=== PATIENT | male | born 1945 | race Caucasian/White ===

== ENCOUNTER 2017-12-09 07:42 | Emergency (ER) | payer OTHER ==
[~2017-12-09] VITALS: Ht 182.9 cm; Wt 97.5 kg
[~2017-12-09 07:42] MED LIST: INSR10I SC; INSULANI SC; METF500 PO; NAPR500 PO; OXYACE5T PO; PROM25 PO; TAMS.4ER PO
[2017-12-09] MEDS ORDERED: Ultram50 MG PO (09:20)
[2018-06-05] MEDS ORDERED: TRAM50 PO (09:37)
[2018-06-05] MEDS ORDERED: NAPR500 PO (09:38)
[2018-06-05] MEDS ORDERED: FLUO10 PO (09:38)
[2018-06-05] MEDS ORDERED: LISI5 PO (09:38)
[2018-09-06] MEDS ORDERED: NAPR500 PO (15:57)
[2018-09-06] MEDS ORDERED: Ferrous Sulfat325 M2 PO (15:58)
== END 2017-12-09 09:27 | disposition home or self-care (01) ==
LOC: ER 07:42
DX: M19.011 Primary osteoarthritis, right shoulder (principal); E11.9 Type 2 diabetes mellitus without complications; Z79.899 Other long term (current) drug therapy; Z79.4 Long term (current) use of insulin
CPT/HCPCS: 73030; 99283

== ENCOUNTER 2020-02-13 06:11 | Emergency (ER) | payer OTHER ==
[~2020-02-13] VITALS: Ht 182.9 cm; Wt 88.5 kg
[~2020-02-13 06:11] MED LIST changes: +FLUO10 PO; +Ferrous Sulfat325 M2 PO; -INSULANI SC; +INSULANPEN SC; +LISI5 PO; +TRAM50 PO; +Ultram50 MG PO
[2020-02-13] MEDS ORDERED: AMOCLA875 PO (07:45)
== END 2020-02-13 07:52 | disposition home or self-care (01) ==
LOC: ER 06:11
DX: S61.451A Open bite of right hand, initial encounter (principal); L08.9 Local infection of the skin and subcutaneous tissue, unspecified; E11.9 Type 2 diabetes mellitus without complications; W55.01XA Bitten by cat, initial encounter; Z87.891 Personal history of nicotine dependence; Z79.4 Long term (current) use of insulin; Z79.899 Other long term (current) drug therapy
CPT/HCPCS: 99282

== ENCOUNTER 2020-05-26 10:43 | Emergency (ER) | payer OTHER ==
[~2020-05-26] VITALS: Ht 182.9 cm; Wt 79.4 kg
[~2020-05-26 10:43] MED LIST changes: +AMOCLA875 PO
[2020-05-26] MEDS ORDERED: Veetids 500500 MG PO (11:19)
[2020-05-26] MEDS ORDERED: Norco 5-325 Ta1 EACH PO (11:19)
== END 2020-05-26 11:35 | disposition home or self-care (01) ==
LOC: ER 10:43
DX: K08.89 Other specified disorders of teeth and supporting structures (principal); E11.9 Type 2 diabetes mellitus without complications; Z79.899 Other long term (current) drug therapy; Z79.4 Long term (current) use of insulin
CPT/HCPCS: 99282

== ENCOUNTER 2021-05-10 18:52 | Emergency (ER) | payer OTHER ==
[~2021-05-10] VITALS: Ht 182.9 cm; Wt 81.7 kg
[~2021-05-10 18:52] MED LIST changes: +Norco 5-325 Ta1 EACH PO; +Veetids 500500 MG PO
[2021-05-10 19:29] LABS: BASOPHILS ABSOLUTE AUTO 0.02 K/mm3 (0.00-0.23); BASOPHILS PERCENT AUTO 0 % (0-2); EOSINOPHILS ABSOLUTE AUTO 0.08 K/mm3 (0.00-0.68); EOSINOPHILS PERCENT AUTO 1 % (0-6); Hematocrit 42.7 % (37.0-53.0); Hemoglobin 14.8 g/dL (13.5-17.5); IMMATURE GRAN ABSOLUTE AUTO 0.01 K/mm3 (0.00-0.10); IMMATURE GRAN PERCENT AUTO 0 % (0-1); LYMPHOCYTES ABSOLUTE AUTO 1.81 K/mm3 (0.84-5.20); LYMPHOCYTES PERCENT AUTO 29 % (21-46); MONOCYTES ABSOLUTE AUTO 0.39 K/mm3 (0.16-1.47); MONOCYTES PERCENT AUTO 6 % (4-13); Mean Corpuscular HGB 31.4 pg (26.0-34.0); Mean Corpuscular HGB Conc 34.7 g/dL (31.5-36.5); Mean Corpuscular Volume 91 fL (80-100); Mean Platelet Volume 10.2 fL (9.1-12.4); NEUTROPHILS ABSOLUTE AUTO 3.93 K/mm3 (1.96-9.15); NEUTROPHILS PERCENT AUTO 63 % (41-73); Platelet Count 217 K/mm3 (150-400); RDW Coefficient Variation 11.4 % (11.7-14.2); RDW Standard Deviation 38.1 fL (35.1-46.3); Red Blood Cell Count 4.72 M/mm3 (4.30-5.90); White Blood Cell Count 6.24 K/mm3 (4.00-11.30)
[2021-05-10 19:57] LABS: Alanine Aminotransfer (ALT/SGP 17 U/L (12-78); Albumin, Blood 3.4 g/dL (3.4-5.0); Albumin/Globulin Ratio 0.9 (0.8-1.8); Alk Phos 70 U/L (50-136); Anion Gap 8 mmol/L (6-16); Aspartate Aminotrans (AST/SGOT 23 U/L (12-37); Bilirubin, Total 0.9 mg/dL (0.1-1.0); Blood Urea Nitrogen 24 mg/dL (8-24); Bun/Creatinine Ratio 12.6 (12.0-20.0); CO2, Blood 20 mmol/L (21-32); Calcium, Blood 9.1 mg/dL (8.5-10.1); Chloride, Blood 112 mmol/L (98-108); Creatinine, Blood 1.91 mg/dL (0.60-1.20); Globulin, Blood 3.7 g/dL (2.2-4.0); Glomerular Filtration Rate 34 (60-); Glucose, Blood 272 mg/dL (70-99); Potassium, Blood 4.4 mmol/L (3.5-5.5); Sodium, Blood 140 mmol/L (136-145); Total Protein, Blood 7.1 g/dL (6.4-8.2); Troponin I <0.015 ng/mL (0.000-0.040)
[2021-05-10 21:10] LABS: Calcium, Ionized (POC) 0.97 mmol/L (1.10-1.46); Chloride (POC) 111 mmol/L (98-108); Creatinine (POC) 1.6 mg/dL (0.8-1.3); Glucose (ISTAT POC) 195 mg/dL (70-99); Hemoglobin (POC) 13.3 g/dL (13.5-17.5); Sodium (POC) 139 mmol/L (135-148); Total CO2 (POC) 20 mmol/L (21-32)
[2021-05-10 22:13] LABS: Source, Urine Clean Catch
[2021-05-10 22:15] LABS: Bilirubin, Urine Neg (Neg); Blood, Urine 1+ (Neg); Glucose Qualitative, Urine 4+ (Neg); Ketones, Urine Neg (Neg); Leukocyte Esterase, Urine Neg (Neg); Nitrite, Urine Neg (Neg); Protein, Urine 1+ (Neg); Specific Gravity, Urine 1.015 (1.003-1.022); Urobilinogen, Urine NORM (Normal)
[2021-05-10 22:21] LABS: Appearance, Urine Clear (Clear); Color, Urine Yellow (P-Yellow)
[2021-05-10 22:22] LABS: Bacteria Few /hpf; Hyaline Casts 0-2 /lpf (0-2); Red Blood Cells, Urine 0-2 /hpf (0-2); Squamous Epithelial Cells Not Seen /hpf (Few); Yeast/Fungi Urine Few /hpf
== END 2021-05-10 22:31 | disposition home or self-care (01) ==
LOC: ER 18:52
PROVIDERS: Student in an Organized Health Care Education/Training Program
DX: R55 Syncope and collapse (principal); E86.0 Dehydration; N17.9 Acute kidney failure, unspecified; E11.65 Type 2 diabetes mellitus with hyperglycemia; Z79.4 Long term (current) use of insulin; Z87.891 Personal history of nicotine dependence
CPT/HCPCS: 71045; 80047; 80053; 81001; 83880; 84484; 85014; 85025; 93005; 93010; 99284-25; J7030

== ENCOUNTER 2022-05-18 15:28 | Emergency (ER) | payer OTHER ==
[~2022-05-18] VITALS: Ht 182.9 cm; Wt 74.8 kg
== END 2022-05-18 17:13 | disposition home or self-care (01) ==
LOC: ER 15:28
DX: T67.5XXA Heat exhaustion, unspecified, initial encounter (principal); E11.9 Type 2 diabetes mellitus without complications; Z79.4 Long term (current) use of insulin; Z87.891 Personal history of nicotine dependence; X58.XXXA Exposure to other specified factors, initial encounter; Z89.212 Acquired absence of left upper limb below elbow
CPT/HCPCS: 93005; 93010; 99285-25; C1751

== ENCOUNTER 2023-08-14 16:44 | Emergency (ER) | payer OTHER ==
[~2023-08-14] VITALS: Ht 182.9 cm; Wt 68.0 kg
[2023-08-14 18:10] LABS: BASOPHILS ABSOLUTE AUTO 0.03 K/mm3 (0.00-0.23); BASOPHILS PERCENT AUTO 1 % (0-2); EOSINOPHILS ABSOLUTE AUTO 0.04 K/mm3 (0.00-0.68); EOSINOPHILS PERCENT AUTO 1 % (0-6); Hematocrit 44.1 % (37.0-53.0); Hemoglobin 14.5 g/dL (13.5-17.5); IMMATURE GRAN ABSOLUTE AUTO 0.03 K/mm3 (0.00-0.10); IMMATURE GRAN PERCENT AUTO 1 % (0-1); LYMPHOCYTES ABSOLUTE AUTO 0.89 K/mm3 (0.84-5.20); LYMPHOCYTES PERCENT AUTO 14 % (21-46); MONOCYTES ABSOLUTE AUTO 0.31 K/mm3 (0.16-1.47); MONOCYTES PERCENT AUTO 5 % (4-13); Mean Corpuscular HGB 30.3 pg (26.0-34.0); Mean Corpuscular HGB Conc 32.9 g/dL (31.5-36.5); Mean Corpuscular Volume 92 fL (80-100); Mean Platelet Volume 9.4 fL (9.1-12.4); NEUTROPHILS ABSOLUTE AUTO 5.19 K/mm3 (1.96-9.15); NEUTROPHILS PERCENT AUTO 80 % (41-73); Platelet Count 252 K/mm3 (150-400); RDW Coefficient Variation 13.4 % (11.7-14.2); RDW Standard Deviation 45.5 fL (35.1-46.3); Red Blood Cell Count 4.78 M/mm3 (4.30-5.90); White Blood Cell Count 6.49 K/mm3 (4.00-11.30)
[2023-08-14 18:44] LABS: Albumin, Blood 3.6 g/dL (3.4-5.0); Albumin/Globulin Ratio 0.8 (0.8-1.8); Beta-hydroxybutyrate 7.8 mg/dL (0.2-2.8); Bun/Creatinine Ratio 15.8 (12.0-20.0); Calcium, Blood 9.7 mg/dL (8.5-10.1); Creatinine, Blood 1.46 mg/dL (0.60-1.20); Globulin, Blood 4.4 g/dL (2.2-4.0); Potassium, Blood 4.6 mmol/L (3.5-5.5)
[2023-08-14 21:00] VITALS: BP 151/88
[2023-08-14] MEDS ORDERED: ONDA4ODT MM (21:07)
== END 2023-08-14 21:23 | disposition home or self-care (01) ==
LOC: ER 16:44
PROVIDERS: Student in an Organized Health Care Education/Training Program
DX: K29.00 Acute gastritis without bleeding (principal); E11.9 Type 2 diabetes mellitus without complications; Z79.84 Long term (current) use of oral hypoglycemic drugs; Z79.4 Long term (current) use of insulin; Z87.891 Personal history of nicotine dependence
CPT/HCPCS: 71046; 80053; 82010; 83690; 83930; 85025; 93005; 93010; 96360; 99284-25; J2405; J3010; J7030

== ENCOUNTER 2023-08-18 13:02 | Inpatient (IN) | payer OTHER ==
[~2023-08-18] VITALS: Ht 182.9 cm; Wt 71.4 kg
[~2023-08-18 13:02] MED LIST changes: +ONDA4ODT MM
[2023-08-18 14:36] LABS: BASOPHILS ABSOLUTE AUTO 0.03 K/mm3 (0.00-0.23); BASOPHILS PERCENT AUTO 1 % (0-2); EOSINOPHILS ABSOLUTE AUTO 0.06 K/mm3 (0.00-0.68); EOSINOPHILS PERCENT AUTO 1 % (0-6); Hematocrit 43.1 % (37.0-53.0); Hemoglobin 14.6 g/dL (13.5-17.5); IMMATURE GRAN ABSOLUTE AUTO 0.01 K/mm3 (0.00-0.10); IMMATURE GRAN PERCENT AUTO 0 % (0-1); LYMPHOCYTES ABSOLUTE AUTO 1.46 K/mm3 (0.84-5.20); LYMPHOCYTES PERCENT AUTO 26 % (21-46); MONOCYTES ABSOLUTE AUTO 0.47 K/mm3 (0.16-1.47); MONOCYTES PERCENT AUTO 8 % (4-13); Mean Corpuscular HGB 30.7 pg (26.0-34.0); Mean Corpuscular HGB Conc 33.9 g/dL (31.5-36.5); Mean Corpuscular Volume 91 fL (80-100); Mean Platelet Volume 9.8 fL (9.1-12.4); NEUTROPHILS ABSOLUTE AUTO 3.59 K/mm3 (1.96-9.15); NEUTROPHILS PERCENT AUTO 64 % (41-73); Platelet Count 263 K/mm3 (150-400); RDW Coefficient Variation 13.2 % (11.7-14.2); RDW Standard Deviation 43.8 fL (35.1-46.3); Red Blood Cell Count 4.76 M/mm3 (4.30-5.90); White Blood Cell Count 5.62 K/mm3 (4.00-11.30)
[2023-08-18 14:49] LABS: Albumin, Blood 3.6 g/dL (3.4-5.0); Albumin/Globulin Ratio 0.8 (0.8-1.8); Bilirubin, Total 0.7 mg/dL (0.1-1.0); Bun/Creatinine Ratio 16.5 (12.0-20.0); Calcium, Blood 9.6 mg/dL (8.5-10.1); Creatinine, Blood 2.3 mg/dL (0.60-1.20); Globulin, Blood 4.4 g/dL (2.2-4.0)
[2023-08-18 15:00] LABS: Source, Urine Clean Catch
[2023-08-18 15:02] LABS: Appearance, Urine Clear (Clear); Bilirubin, Urine Neg (Neg); Blood, Urine 1+ (Neg); Color, Urine Yellow (P-Yellow); Glucose Qualitative, Urine 1+ (Neg); Ketones, Urine Neg (Neg); Leukocyte Esterase, Urine 1+ (Neg); Nitrite, Urine Neg (Neg); Protein, Urine 2+ (Neg); Specific Gravity, Urine 1.025 (1.003-1.022); Urobilinogen, Urine NORM (Normal)
[2023-08-18 15:10] LABS: Bacteria Many /hpf; Squamous Epithelial Cells Rare /hpf (Few)
[2023-08-18 15:11] LABS: Base Excess Venous -0.6 mmol/L; Bicarbonate Venous 23.1 mmol/L (24.0-30.0); PCO2 Venous 42.8 mmHg (38-42); pH Blood Venous 7.37 (7.34-7.37)
[2023-08-18 18:02] VITALS: BP 153/90
[2023-08-18] MEDS ORDERED: FLUO10 PO (18:07)
[2023-08-18 19:45] VITALS: BP 131/78
[2023-08-19 03:02] VITALS: BP 125/75
[2023-08-19 03:50] LABS: Hematocrit 38.9 % (37.0-53.0); Hemoglobin 13.3 g/dL (13.5-17.5); Mean Corpuscular HGB Conc 34.2 g/dL (31.5-36.5); Mean Corpuscular Volume 91 fL (80-100); Mean Platelet Volume 9.8 fL (9.1-12.4); Platelet Count 183 K/mm3 (150-400); RDW Coefficient Variation 13.3 % (11.7-14.2); RDW Standard Deviation 44.1 fL (35.1-46.3); Red Blood Cell Count 4.29 M/mm3 (4.30-5.90); White Blood Cell Count 6.34 K/mm3 (4.00-11.30)
[2023-08-19 04:18] LABS: Albumin, Blood 3.2 g/dL (3.4-5.0); Anion Gap 5 mmol/L (6-16); Blood Urea Nitrogen 33 mg/dL (8-24); Bun/Creatinine Ratio 16.5 (12.0-20.0); CO2, Blood 26 mmol/L (21-32); Calcium, Blood 8.4 mg/dL (8.5-10.1); Chloride, Blood 108 mmol/L (98-108); Ferritin, Serum 227 ng/mL (26-388); Glomerular Filtration Rate 34 (60-); Glucose, Blood 115 mg/dL (70-99); Iron Serum 58 ug/dL (65-175); Magnesium, Blood 1.6 mg/dL (1.6-2.4); Percent Saturation 26.6 % (20.0-50.0); Phosphorus, Blood 3.3 mg/dL (2.5-4.9); Potassium, Blood 3.7 mmol/L (3.5-5.5); Sodium, Blood 139 mmol/L (136-145); Total Iron Binding Capacity 218 ug/dL (250-450)
--- NOTE | 2023-08-19 04:58 | NUR ---
SHIFT SUMMARY NO ACUTE CHANGES OVERNIGHT. PT ANSWERING QUESTIONS APPROPRIATELY BUT APPEARS FORGETFUL AT TIMES. CALLING APPROPRIATELY. VITALS STABLE. REPOSITIONING SELF AND USING URINAL INDEPENDENTLY. NS INFUSING PER EMAR. BED IN LOWEST POSITION AND CALL LIGHT WITHIN REACH. THIS RN WILL REPORT TO ONCOMING DAYSHIFT RN.
[2023-08-19 07:23] VITALS: BP 114/52
[2023-08-19 17:06] VITALS: BP 133/77
--- NOTE | 2023-08-19 17:28 | NUR ---
SHIFT SUMMARY: PT REMAINS ALERT AND ORIENTED X3, ABLE TO FOLLOW COMMANDS AND MAKE NEEDS KNOWN. FORGETFUL AT TIMES. POOR HISTORIAN. PT ABLE TO TELL THIS RN NAME, , AND LOCATION. AFEBRILE. BP AND HR STABLE. SPO2 >98% ON ROOM AIR. RESPIRATIONS EVEN AND UNLABORED. PULSES STRONG AND EQUAL THROUGHOUT. PT REMAINS HEAVY 2 PERSON MAX ASSIST WITH GAITBELT AND FWW. TELLS THIS RN ABOUT [place]. WHEN ASKED ABOUT LIVING SITUATION PT STATES HE LIVES ALONE WITH 20 CATS. PT DISCLOSES HE IS UNABLE TO RECEIVE FOOD SOURCES DUE TO INCOME AND LACK OF TRANSPORTATION, STATES 50+ LB WEIGHT LOST WITHIN 6 MONTHS. AT TIMES BROTHER AND SISTER IN LAW ARE ABLE TO ASSIST IN GROCERY SHOPPING. PT UNSAFE TO D/C HOME AT THIS TIME. PT/OT ORDERED. CARE MANAGEMENT INVOLVED. BED IN LOW, CALL LIGHT IN REACH, WILL REPORT TO ONCOMING RN.
[2023-08-19 19:43] VITALS: BP 141/76
[2023-08-20 02:26] VITALS: BP 162/88
--- NOTE | 2023-08-20 04:54 | NUR ---
SHIFT SUMMARY: PT IS ALERT AND ORIENTED. PT IS CALM AND COOPERATIVE WITH CARE. PT CALLS APPROPRIATELY. PT IS A 2 PERSON ASSIST, USING THE URINAL INDEPENDENTLY. PT DENIES PAIN, NAUSEA, VOMITING, AND SOB. BED IN LOW POSITION, CALL LIGHT WITHIN REACH. WILL CONTINUE TO MONITOR AND REPORT TO DAY NURSE.
[2023-08-20 05:29] LABS: Hematocrit 40.5 % (37.0-53.0); Hemoglobin 13.5 g/dL (13.5-17.5); Mean Corpuscular HGB 30.3 pg (26.0-34.0); Mean Corpuscular HGB Conc 33.3 g/dL (31.5-36.5); Mean Corpuscular Volume 91 fL (80-100); Platelet Count 183 K/mm3 (150-400); RDW Coefficient Variation 13.2 % (11.7-14.2); RDW Standard Deviation 43.9 fL (35.1-46.3); Red Blood Cell Count 4.46 M/mm3 (4.30-5.90); White Blood Cell Count 6.93 K/mm3 (4.00-11.30)
--- NOTE | 2023-08-20 05:29 | NUR ---
LATE NOTE. PT TRANSFERRED FROM [facility] TO ROOM 338 AT ABOUT ~0130. PT AOX2, PLEASANT, COOPERATIVE WITH CARE AT TIME OF TRANSFER. IMPULSIVE BUT MOSTLY REIDRECTABLE. VERY UNSTEADY ON FEET. REPORTS FEELING DIZZY WHENEVER HE SITS UP TOO FAST OR STANDS UP. REPORT GIVEN TO RN AL YU WHO WAS AT BEDSIDE FOR PT ARRIVAL ON MEDICAL FLOOR. RECIEVING RN WAS ABLE TO ASSUME CARE WITHOUT DIFFICULTY AND REPORTED NO FURTHER QUESTIONS.
[2023-08-20 05:50] LABS: Albumin, Blood 3.2 g/dL (3.4-5.0); Anion Gap 6 mmol/L (6-16); Blood Urea Nitrogen 22 mg/dL (8-24); Bun/Creatinine Ratio 14.9 (12.0-20.0); CO2, Blood 26 mmol/L (21-32); Calcium, Blood 8.7 mg/dL (8.5-10.1); Chloride, Blood 106 mmol/L (98-108); Creatinine, Blood 1.48 mg/dL (0.60-1.20); Glomerular Filtration Rate 48 (60-); Glucose, Blood 129 mg/dL (70-99); Magnesium, Blood 1.6 mg/dL (1.6-2.4); Phosphorus, Blood 3.1 mg/dL (2.5-4.9); Potassium, Blood 3.7 mmol/L (3.5-5.5); Sodium, Blood 138 mmol/L (136-145)
[2023-08-20 07:45] VITALS: BP 131/96
[2023-08-20 07:47] VITALS: BP 115/73
[2023-08-20 07:53] VITALS: BP 115/80
[2023-08-20 17:28] VITALS: BP 126/96
[2023-08-20 19:16] VITALS: BP 135/89
--- NOTE | 2023-08-20 19:47 | NUR ---
SHIFT SUMMARY PATIENT CONFUSED THROUGHOUT THE DAY. PATIENT VERY WEAK AND IMPULSIVE. PATIENT UNDERSTANDS THAT IT IS NOT SAFE FOR HIM TO RETURN HOME ALONE. PATIENT TALKING ABOUT NEEDING TO GO HOME AND MAKE ARRANGEMENTS. PATIENT ANXIOUS ABOUT DISCHARGE PLAN AND COST.
[2023-08-21] VITALS (7 sets, daily range): BP systolic 100–145; BP diastolic 63–84
--- NOTE | 2023-08-21 05:03 | NUR ---
SHIFT SUMMARY PT LAYING IN BED DURING BEDSIDE REPORT, PT REPORTS STOMACH TENDER BUT TOLERABLE- IV INFUSING WITHOUT PROBLEMS, PT ALLOWED ICE CHIPS AND WATER UNTIL 12PM 08/21/23- PT SLEPT T/O NIGHT WITHOUT ANY C/O INCREASE PAIN, PT DENIED ANY BMS T/O SHIFT - BED LOW POSITION, CALL LIGHT WITHIN REACH
[2023-08-21 05:35] LABS: Bun/Creatinine Ratio 12.6 (12.0-20.0); Calcium, Blood 8.9 mg/dL (8.5-10.1); Creatinine, Blood 1.43 mg/dL (0.60-1.20); Potassium, Blood 3.8 mmol/L (3.5-5.5)
--- NOTE | 2023-08-21 05:42 | NUR ---
SHIFT SUMMARY PT LAYING IN BED DURING BEDSIDE REPORT- PT BROTHER NELSON AND IN VISITING WITH FAMILY, PT CALLED AND REQUESTED UPDATE TO BE GIVEN TO BROTHER AND - PT TOOK SCHEDULED HS MEDS WITHOUT PROBLEMS, PT C/O RIGHT SHOULDER PAIN, OFFERED TYLENOL- PT REFUSED, PT CONFUSED T/O NIGHT REPEATILY ASKED SAME QUESTIONS- PT SET OFF BED ALARM SEVERAL TIMES GETTING UP TO SIDE OF BED TO USE URINAL - 0305 PT USED CALL LIGHT AND REQUESTED GLUCOSE CHECK - PT CONCERNED THAT IT WAS LOW, UJE=[id number]- ENCOURAGED PT TO TRY TO FALL ASLEEP AND REST, PT UP T/O ALL SHIFT WATCHING TV- BED LOW POSITION, CALL LIGHT WITHIN RECH, BED ALARM IN PLACE
--- NOTE | 2023-08-21 17:01 | NUR ---
SHIFT SUMMARY PATIENT CONTINUES TO BE CONFUSED AND RESTLESS AT TIMES. PATIENT ABLE TO REMEMBER THAT HE IS GOING TO REHAB AT SOME POINT BUT GETS ANXIOUS ABOUT WHEN AND WHAT HE NEEDS TO DO TO FACILITATE THIS. PATIENT CONTINUES TO BE UNSTEADY WHEN AMBULATING. PATIENT DIZZY AND LIGHT HEADED THIS MORNING WITH OT.
--- NOTE | 2023-08-21 22:09 | NUR ---
PT HAD FALL IN BATHROOM AND FELL ON BACKSIDE AND SCRAPED BACK ON TOILET SEAT. HOSPITALIST NOTIFIED AND INSTRUCTION GIVEN TO ENSURE FALL PRECAUTIONS ARE IN PLACE.
--- NOTE | 2023-08-21 22:35 | NUR ---
PT, fell in restroom, bed alarm was not on at the time of fall. when i heard a crashing sound, walked in to find him with his back to he wall that the toilet paper dispenser is on. red scratch area on back between shoulders from the toilet paper lid. No complaints of back or hip pain. Reported fall to RN. I assisted him from floor to bed, vitals were taken and bed alarm turned on.
[2023-08-22 04:36] VITALS: BP 125/76
--- NOTE | 2023-08-22 05:30 | NUR ---
SHIFT SUMMARY NOC PT A/O X 2-3. FORGETFUL AND CONFUSED, BUT REDIRECTS EASILY. PT IS SEVERELY DECONDITIONED AND BECOMES DIZZY AND LIGHTHEADED WITH MUCH MOVEMENT. AROUND 2200 PT HAD UNWITNESSED FALL IN BATHROOM, PT REPORTS MISSING TOILET AND FALLING STRAIGHT DOWN ON BACKSIDE, SMALL RED SCRATCH IN MIDDLE LOWER BACK FOUND. VSS AND NEURO CHECKS ASSESSED AND NO CHANGES FROM BASELINE, HOSPITALIST NOTIFIED. PT IS FIXATED ON WHEN DISCHARGE WILL HAPPEN BECAUSE PT IS WORRIED ABOUT PET CATS AT HOME BEING FED. PT IS CURRENTLY RESTING WITH BED ALARM ON, YELLOW GOWN/NON SLIP SOCKS IN PLACE, BED IN LOWEST POSITION, AND CALL LIGHT WITHIN REACH.
[2023-08-22 07:10] VITALS: BP 121/79
[2023-08-22 12:05] LABS: SARS-Cov-2 (COVID-19) PCR, MMC POSITIVE (NEGATIVE)
[2023-08-22] MEDS ORDERED: DOCUZEN 8.6-501 EACH PO (13:05)
[2023-08-22] MEDS ORDERED: MECL12.5 PO (13:05)
[2023-08-22 15:25] VITALS: BP 112/74
--- NOTE | 2023-08-22 16:44 | NUR ---
SHIFT SUMMARY- PT IS ALERT, PLESANT AND COOPERATIVE. HE SLEPT INTERMITENTLY THROUGHTOUT THIS SHIFT. WORKED WITH PT HIS BECAME DIZZY. HIS BED IS IN THE LOW POSITION AND CALL LIGHT IS WITHIN REACH.
--- NOTE | 2023-08-22 17:59 | NUR ---
RN TO RN REPORT RECIEVED FROM KESHIA BARGER AT [id number]
[2023-08-22 19:44] VITALS: BP 126/75
[2023-08-23 02:59] VITALS: BP 130/79
--- NOTE | 2023-08-23 05:54 | NUR ---
SHIFT SUMMARY NOC PT A/O TO SELF. HIGHLY CONFUSED BUT PLEASANT. PT REPEATEDLY HITS CALL LIGHT MISTAKING IT FOR TV CONTROLLER FUNCTION. PT ALSO WANTS TO GET UP TO TRY AND WALK, BUT IS REMINDED THAT THEY CANNOT WITHOUT FALLING. PT HAD POSITIVE C-19 PCR AND WAS DENIED ADMISSION TO [facility], BUT A BEDSIDE RAPID TEST WAS NEGATIVE AND PT HAS BEEN ACCEPTED AT [facility], BUT IS WAITING ON A BED WHICH COULD COME EARLY SUNDAY. PT IS CURRENTLY RESTING WITH BED ALARM ON, BED IN LOWEST POSITION, AND CALL LIGHT WITHIN REACH.
[2023-08-23 07:12] VITALS: BP 157/85
[2023-08-23 15:45] VITALS: BP 123/74
--- NOTE | 2023-08-23 17:16 | NUR ---
SHIFT SUMMARY PT AOX2-3, FORGETFUL AT TIMES BUT ABLE TO REORIENT. SLEEPING OFF AND ON T/O THE SHIFT, AROUSABLE. BROTHER AT THE BS TODAY, AWARE THE PT IS TO GO TO [facility] ON SUNDAY. NO COMPLAINTS FROM THE PT, REPOSITIONED NEEDED. USING THE URINAL INDEPENDENTLY. CALL LIGHT WITHIN REACH, BED IN THE LOWEST POSITION. WILL REPORT TO ONCOMING NURSE.
[2023-08-23 19:10] VITALS: BP 118/72
[2023-08-24 03:41] VITALS: BP 120/80
--- NOTE | 2023-08-24 04:08 | NUR ---
SHIFT SUMMARY PATIENT IS A/O X3, FORGETFUL AT TIMES-PATIENT IS AWARE THAT HE IS FORGETFUL AND WILL SAY HE PROBABLY WONT REMEMBER-EASILY REORIENTED. PATIENT HAS SLEPT OFF AND ON T/O SHIFT. PATIENT USING URINAL INDEPENDENTLY. PATIENT UP SITTING ON SIDE OF BED THIS SHIFT, PATIENT STATES HE "USE TO WORK AT NIGHT SO HE IS USE TO BEING UP AT NIGHT AND SLEEPING DURING THE DAY. PATIENT HIT HIS CALL LIGHT MULTIPLE TIMES TONIGHT WHEN TRYING TO USE HIS REMOTE. BED IS LOCKED IN THE LOWEST POSITION WITH CALL LIGHT IN REACH. BED EXIT ENGAGED FOR SAFETY.
[2023-08-24 08:08] VITALS: BP 138/79
[2023-08-24 14:59] VITALS: BP 123/85
[2023-08-24 19:16] VITALS: BP 122/74
--- NOTE | 2023-08-24 19:28 | NUR ---
SHIFT SUMMARY PT IS ALERT AND ORIENTED TO SELF. HE IS VERY FORGETFUL AND ANXIETY HAS WORSENED THROUGHOUT THE DAY REGARDING SNF PLACEMENT. HE IS CONCERNED FOR HIS ANIMALS AND HOME. REASSURED PT THROUGHOUT THE DAY THAT FAMILY IS TAKING CARE OF BOTH BUT PT DOES NOT REMEMBER AND NEEDS CONSTANT REASSURING. FALL RISK. USES URINAL IN BED. DOES NOT CALL. ATTEMPTS TO SIT UP AT THE SIDE OF BED. HE LEANS TO THE FRONT AND RIGHT. CALL LIGHT IN REACH. BED ALARM ON FOR SAFETY. NO ACUTE CHANGES.
[2023-08-24 20:08] VITALS: BP 123/82
[2023-08-24 22:17] LABS: BASOPHILS ABSOLUTE AUTO 0.03 K/mm3 (0.00-0.23); BASOPHILS PERCENT AUTO 1 % (0-2); EOSINOPHILS ABSOLUTE AUTO 0.14 K/mm3 (0.00-0.68); EOSINOPHILS PERCENT AUTO 2 % (0-6); Hematocrit 38.1 % (37.0-53.0); Hemoglobin 12.8 g/dL (13.5-17.5); IMMATURE GRAN PERCENT AUTO 0 % (0-1); LYMPHOCYTES ABSOLUTE AUTO 1.72 K/mm3 (0.84-5.20); LYMPHOCYTES PERCENT AUTO 28 % (21-46); MONOCYTES ABSOLUTE AUTO 0.53 K/mm3 (0.16-1.47); MONOCYTES PERCENT AUTO 9 % (4-13); Mean Corpuscular HGB 30.7 pg (26.0-34.0); Mean Corpuscular HGB Conc 33.6 g/dL (31.5-36.5); Mean Corpuscular Volume 91 fL (80-100); NEUTROPHILS ABSOLUTE AUTO 3.67 K/mm3 (1.96-9.15); NEUTROPHILS PERCENT AUTO 60 % (41-73); Platelet Count 194 K/mm3 (150-400); RDW Coefficient Variation 13.2 % (11.7-14.2); RDW Standard Deviation 43.8 fL (35.1-46.3); Red Blood Cell Count 4.17 M/mm3 (4.30-5.90); White Blood Cell Count 6.09 K/mm3 (4.00-11.30)
[2023-08-24 22:18] LABS: PCO2 Venous 36.3 mmHg (38-42); pH Blood Venous 7.44 (7.34-7.37)
[2023-08-24 22:19] LABS: Base Excess Venous 0.6 mmol/L; Bicarbonate Venous 25.2 mmol/L (24.0-30.0)
[2023-08-24 22:39] LABS: Albumin/Globulin Ratio 0.7 (0.8-1.8); Bilirubin, Total 0.4 mg/dL (0.1-1.0); Bun/Creatinine Ratio 18.2 (12.0-20.0); Creatinine, Blood 1.37 mg/dL (0.60-1.20); Globulin, Blood 4.1 g/dL (2.2-4.0); Magnesium, Blood 2.1 mg/dL (1.6-2.4); Potassium, Blood 4.3 mmol/L (3.5-5.5); Total Protein, Blood 7.1 g/dL (6.4-8.2)
--- NOTE | 2023-08-25 04:48 | NUR ---
SHIFT SUMMARY PATIENT IS A/O TO SELF. PATIENT IS FORGETFUL, WORRIED ABOUT HIS PETS AND HOME-REASSURED PATIENT THAT BROTHER IS TAKING CARE OF HIS PETS AT HOME MULTIPLE TIMES TONIGHT PATIENT IS FORGETFUL. PATIENT WANTING TO GET UP AND WALK TO BUILD UP HIS STRENGTH-PATIENT UNSTEADY ON FEET. PATIENT SAT UP ON SIDE OF BED. PATIENT IS COOPERATIVE WITH CARE, DOES NOT CALL. BED IS LOCKED IN THE LOWEST POSITION WITH CALL LIGHT IN REACH. BED EXIT ALARM ENGAGED FOR SAFETY.
[2023-08-25 08:06] VITALS: BP 146/88
[2023-08-25 12:33] LABS: SARS-Cov-2 (COVID-19) PCR, MMC NEGATIVE (NEGATIVE)
--- NOTE | 2023-08-25 13:57 | NUR ---
REPORT GIVEN TO TG SCHMITT. CURRENTLY AWAITING TRANSPORT. FAMILY IS AT BEDSIDE
== END 2023-08-25 14:27 | DRG 682 ==
LOC: ER 13:02 → PCU 16:46 → MEDS 16:46 → PCU 17:49 → MEDS 08-20 02:19 → ENPENDDIS 08-22 12:07 → MEDS 08-22 14:46
PROVIDERS: Emergency Medicine; Internal Medicine; Physician Assistant; Student in an Organized Health Care Education/Training Program; ADMIT Internal Medicine
PROC: 8E0ZXY6 Isolation (ICD-10-PCS; principal; 2023-08-22)
DX: N17.9 Acute kidney failure, unspecified (principal); U07.1 COVID-19; E46 Unspecified protein-calorie malnutrition; N18.30 Chronic kidney disease, stage 3 unspecified; E11.22 Type 2 diabetes mellitus with diabetic chronic kidney disease; R82.71 Bacteriuria; R62.7 Adult failure to thrive; F03.90 Unspecified dementia, unspecified severity, without behavioral disturbance, psychotic disturbance, mood disturbance, and anxiety; R63.4 Abnormal weight loss; R26.81 Unsteadiness on feet; B96.20 Unspecified Escherichia coli [E. coli] as the cause of diseases classified elsewhere; H83.09 Labyrinthitis, unspecified ear; W19.XXXA Unspecified fall, initial encounter; Z87.891 Personal history of nicotine dependence; Z68.20 Body mass index [BMI] 20.0-20.9, adult; Z86.010 Personal history of colon polyps; Z87.19 Personal history of other diseases of the digestive system; Z87.442 Personal history of urinary calculi; Z98.890 Other specified postprocedural states; Z89.202 Acquired absence of left upper limb, unspecified level
CPT/HCPCS: 36415; 76770; 80048; 80053; 80069; 81001; 82728; 82803; 82947; 83036; 83540; 83550; 83735; 84443; 85025; 85027; 87077; 87086; 87186; 96360; 97110; 97112; 97161; 97166; 97530; 97535; 99285-25; A9270; J0696; J1650; J7030; U0002

== ENCOUNTER 2024-10-05 20:12 | Emergency (ER) | payer OTHER ==
[~2024-10-05] VITALS: Ht 182.9 cm; Wt 72.6 kg
[~2024-10-05 20:12] MED LIST changes: +ACET500 PO; +ATOR20; +DOCUZEN 8.6-501 EACH PO; +DRON2.5 PO; +MECL12.5 PO; +MECL25 PO; +METFORMIN HCL500 M2 PO; +MIRALAX17 GM PO
[2024-10-05 21:20] LABS: BASOPHILS ABSOLUTE AUTO 0.03 K/mm3 (0.00-0.23); BASOPHILS PERCENT AUTO 1 % (0-2); EOSINOPHILS ABSOLUTE AUTO 0.11 K/mm3 (0.00-0.68); EOSINOPHILS PERCENT AUTO 2 % (0-6); Hematocrit 34.9 % (37.0-53.0); Hemoglobin 11.7 g/dL (13.5-17.5); IMMATURE GRAN ABSOLUTE AUTO 0.01 K/mm3 (0.00-0.10); IMMATURE GRAN PERCENT AUTO 0 % (0-1); LYMPHOCYTES ABSOLUTE AUTO 1.02 K/mm3 (0.84-5.20); LYMPHOCYTES PERCENT AUTO 16 % (21-46); MONOCYTES ABSOLUTE AUTO 0.56 K/mm3 (0.16-1.47); MONOCYTES PERCENT AUTO 9 % (4-13); Mean Corpuscular HGB Conc 33.5 g/dL (31.5-36.5); Mean Corpuscular Volume 95 fL (80-100); Mean Platelet Volume 9.5 fL (9.1-12.4); NEUTROPHILS ABSOLUTE AUTO 4.56 K/mm3 (1.96-9.15); NEUTROPHILS PERCENT AUTO 73 % (41-73); Platelet Count 147 K/mm3 (150-400); RDW Standard Deviation 42.1 fL (35.1-46.3); Red Blood Cell Count 3.66 M/mm3 (4.30-5.90); White Blood Cell Count 6.29 K/mm3 (4.00-11.30)
[2024-10-05] MEDS ORDERED: QUETIAPINE FUMA5012 (21:32)
[2024-10-05] MEDS ORDERED: CELEXA40 M9 (21:32)
[2024-10-05] MEDS ORDERED: DONEPEZIL HCL5 M2 (21:32)
[2024-10-05 21:36] LABS: Albumin, Blood 3.1 g/dL (3.4-5.0); Albumin/Globulin Ratio 0.9 (0.8-1.8); Bilirubin, Total 0.5 mg/dL (0.1-1.0); Bun/Creatinine Ratio 16.8 (12.0-20.0); Calcium, Blood 8.6 mg/dL (8.5-10.1); Creatinine, Blood 1.25 mg/dL (0.60-1.20); Globulin, Blood 3.3 g/dL (2.2-4.0); Potassium, Blood 3.9 mmol/L (3.5-5.5); Total Protein, Blood 6.4 g/dL (6.4-8.2)
[2024-10-06 00:51] VITALS: BP 102/87
== END 2024-10-06 01:09 | disposition home or self-care (01) ==
LOC: ER 20:12
PROVIDERS: Student in an Organized Health Care Education/Training Program
DX: R55 Syncope and collapse (principal); R11.2 Nausea with vomiting, unspecified; R42 Dizziness and giddiness; Z87.891 Personal history of nicotine dependence; E11.9 Type 2 diabetes mellitus without complications; Z79.84 Long term (current) use of oral hypoglycemic drugs; Z79.899 Other long term (current) drug therapy
CPT/HCPCS: 80053; 84484; 85025; 99285

== ENCOUNTER → 2024-12-25 | Outpatient (CLI) | payer OTHER ==
[~2024-12-25] MED LIST changes: +CELEXA40 M9; +DONEPEZIL HCL5 M2; +QUETIAPINE FUMA5012
[2024-12-25 15:33] LABS: Source, Urine Clean Catch
[2024-12-25 17:13] LABS: Appearance, Urine Clear (Clear); Bilirubin, Urine Neg (Neg); Blood, Urine 1+ (Neg); Color, Urine Yellow (P-Yellow); Glucose Qualitative, Urine Neg (Neg); Ketones, Urine Neg (Neg); Leukocyte Esterase, Urine Neg (Neg); Nitrite, Urine Neg (Neg); Protein, Urine Neg (Neg); Specific Gravity, Urine 1.015 (1.003-1.022); Urobilinogen, Urine NORM (Normal)
[2024-12-25 17:27] LABS: Bacteria Not Seen /hpf; Red Blood Cells, Urine 0-2 /hpf (0-2); Squamous Epithelial Cells Rare /hpf (Few); White Blood Cells, Urine 0-2 /hpf (0-5)
== END | disposition home or self-care (01) ==
LOC: LAB SHORT 15:29 → LAB 15:29
PROVIDERS: Physician Assistant
DX: N39.0 Urinary tract infection, site not specified (principal)
CPT/HCPCS: 81001